=== PATIENT | male | born 1965 | race Two or more races ===

== ENCOUNTER 2025-05-17 11:28 | Emergency (ER) | payer BC, OTHER ==
[~2025-05-17] VITALS: Ht 185.4 cm; Wt 84.0 kg
--- NOTE | 2025-05-17 11:40 | ED.PDOC ---
History of Present Illness HPI Comments HPI: This is a 59 year old male KARTHIKEYANA presenting to the ED with chief complaint of generalized weakness. EMS reports that the patient had been working outdoors since 7am and suddenly started to experience dizziness with associated generalized weakness, nausea, and sweats due to the heat outside. EMS relays th at the patient drove to the fire station himself where they were located and they assessed that the patient had been diaphoretic on scene. EMS states that the patient was given 500mL of IVF on route to the ED and patient now notes he feels much better and all symptoms have resolved. Patient denies any headache, chest pain, SOB, N/V/D, dizziness, fever, or chills. Initial Vitals BP: 121/76 HR: 85 RR: 20 O2 Sat: 99% Past Medical history: HTN, Asthma Past Surgical history: Spinal surgery, Bilateral knee surgery, Left shoulder surgery, Right elbow surgery, Tonsillectomy Medications: None Social History: Denies smoking, ETOH, and drug use. Allergies: NKDA HPI: Poor Historian. All symptoms have resolved prior to my evaluation. REVIEW OF SYSTEMS: CONSTITUTIONAL: Denies acute: fever, diaphoresis, chills, generalized weakness. HEAD: Denies acute: headache, photophobia Eyes: Denies acute: Double vision, vision loss, eye pain, eye discharge. EARS: Denies acute: tinnitus, hearing loss, ear discharge, ear pain, THROAT: Denies acute: sore throat, swelling, difficulty swallowing , pain with swallowing, change in voice. NECK: Denies acute: neck pain, neck swelling, stiff neck. HEART: Denies acute : chest pain, palpitations, LUNGS: Denies acute: SOB, wheezing, cough, hemoptysis ABDOMEN: Denies acute: abdominal pain, Nausea, Vomiting, diarrhea, melena , hematemesis, hematochezia SKIN: Denies acute: rash, redness, lesions, itchiness. EXTREMITIES: Denies acute: calf pain, numbness, tingling, weakness, denies pain in extremity. Denies acute: Low back pain. Neuro: Denies acute: focal neurological deficit, motor or sensory focal neurological deficit, tremors, seizure like activity, confusion, dizziness, change in mental status, loss of bowel or bladder function, cauda equina like symptoms. : Denies acute: dysuria, hematuria, flank pain, increase in urinary frequency. PSYCH: Denies acute: hallucination, suicidal ideation, homicidal ideation. PHYSICAL EXAM: General: -----no---acute distress, awake and alert. Head: normocephalic, atraumatic. Neck: supple, trachea is midline, no swelling. Throat: Normal phonation. Eyes:, no erythema, no purulent discharge, no proptosis, no icterus. Heart: regular rate, regular rhythm, no significant murmur appreciated. Lungs: no apparent respiratory distress, Able to speak in full sentences. No wheezing, no rhonchi, no crackles. No stridors Clear to auscultation bilaterally. Abdomen: non tender to palpation, non distended, soft, no guarding, no rebound, + bowel sounds. Neuro: Awake, Alert, oriented to name, self, situation, follows commands GCS=15. Speech is normal. Skin: no petechia, no purpura, no cyanosis, non-pale, not jaundice. Lower extremities: --no - Pitting edema no deformity, no focal swelling, no calf TTP. Makes eye contact. moves all four extremities. Face: no apparent facial droop. ED COURSE: DISCLAIMER: This medical document was created using an electronic medical record system with voice recognition software and computerized dictation system. Although this document has been carefully reviewed, there might still be some phonetic and typographical errors. Occasional wrong-word or "sound-alike" substitutions may have occurred due to the inherent limitations of voice recognition software. These areas are purely typographical due to imperfections of the software programs and do not reflect any compromise in the patient's medical care. Please read the chart carefully and recognize, using context, where these substitutions have occurred. Time Seen by MD: 11:37 Reviewed Notes: Medications, Allergies Allergies: Coded Allergies: NO KNOWN ALLERGIES (Unverified , 05/17/25) Information Source: Patient, Emergency Med Personnel Mode of Arrival: EMS Was a procedure done? Was a procedure done?: No Differential Dx Considerations may include: Includes but not limited to thyroid disease, encephalopathy, electrolyte abnormality, sepsis, infection, intracranial pathology, drug adverse effects, arrhythmia, kidney insufficiency, ACS, CVA, malignancy, anemia X-Ray, Labs, Meds, VS Vital Signs Date Time Temp Pulse Resp B/P (MAP) Pulse Ox O2 Delivery O2 Flow Rate FiO2 05/17/25 12:18 98.7 68 18 131/82 (98) 99 98.7 05/17/25 11:28 70 Time of 1ST Reevaluation: 12:37 Reevaluation 1ST: Unchanged Patient Education/Counseling: Diagnosis, Treatment Family Education/Counseling: No Family Present Comments Patient presented with the above HPI.--heat exhaustion----workup was initiated. patient was found with the above mentioned diagnosis. the following medications were ordered: please refer to order lists of meds and tests obtained by myself Dr. Aguilar. Escalation of care considered: Consideration of escalation to observation or admission Patient left against medical advice/eloped All the reports of any imaging studies that were ordered by myself were reviewed by myself. Departure 1 Departure Time of Disposition: 12:07 Impression: Primary Impression: Heat exhaustion Additional Impression: Left against medical advice Disposition: 07 LEFT AGAINST MEDICAL ADVICE Condition: Other Additional Instructions: Patient left against medical advice. Discharged With: Other Critical Care Note Critical Care Time?: No I personally scribed for SCOT AGUILAR DO ([email or web address]) on 05/17/25 at 11:40. Electronically submitted by Michael Fisher ([email or web address]). SCOT AGUILAR DO May 17, 2025 11:40
[2025-05-17] MEDS ORDERED: SODIUM CHLORIDE 0.9% 1,000 ML IV ONE (11:45)
[2025-05-17 12:18] VITALS: BP 131/82; PULSE 68; RESP 18; TEMP 98.7; O2SAT 99
--- NOTE | 2025-05-22 14:16 | ECG ---
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
== END 2025-05-17 11:59 | disposition left against medical advice (07) ==
LOC: EDBD 11:28 → ER 11:42
DX: T67.5XXA Heat exhaustion, unspecified, initial encounter (principal); I10 Essential (primary) hypertension; J45.909 Unspecified asthma, uncomplicated; Z90.89 Acquired absence of other organs; Z98.890 Other specified postprocedural states; X58.XXXA Exposure to other specified factors, initial encounter; Y93.89 Activity, other specified; Y92.89 Other specified places as the place of occurrence of the external cause; Y99.8 Other external cause status
CPT/HCPCS: 93005